=== PATIENT | female | born 1980 | race African-American/Black ===

== ENCOUNTER 2022-03-18 20:47 | Emergency (ER) | payer MEDICAID ==
[~2022-03-18] VITALS: Ht 165.1 cm; Wt 113.0 kg
[2022-03-18 20:47] VITALS: BP 110/63
[2022-03-18] MEDS ORDERED: methylPREDNISolone SOD SUCC 125 MG/2 ML VL IM ONE (23:30)
[2022-03-18] MEDS ORDERED: KETOROLAC TROMETH 60MG/2ML VIAL IM ONE (23:30)
[2022-03-18] MEDS ORDERED: CYCL-839 PO (23:41)
== END 2022-03-19 00:20 | disposition home or self-care (01) ==
LOC: ER 20:47
DX: M43.6 Torticollis (principal); Z79.899 Other long term (current) drug therapy
CPT/HCPCS: 93005; 96372; 99284; J1885; J2930